=== PATIENT | male | born 1970 | race African-American/Black ===

== ENCOUNTER 2017-02-05 10:39 | Inpatient (IN) | payer OTHER ==
[~2017-02-05] VITALS: Ht 175.3 cm; Wt 86.3 kg
[2017-02-05 12:05] LABS: HEMATOCRIT 41.3 % (38.0-50.0); MCH 29.9 PG (29.0-34.0); MCHC 32.2 G/DL (30.0-36.0); MCV 92.8 FL (86-99); MEAN PLAT.VOLUME 12.5 uM^3 (9.0-12.4); PLATELET COUNT 130 K/uL (156-360); RBC DIS.WIDTH-CV 13.2 % (11.8-14.6); RBC DIS.WIDTH-SD 44.8 % (39-53); RED BLOOD COUNT 4.45 M/uL (4.00-5.50); WHITE BLOOD COUNT 4.2 K/uL (4.1-10.2)
[2017-02-05 12:20] LABS: CHLORIDE 102 mEq/L (99-109); POTASSIUM 4.3 mEq/L (3.7-5.4); SODIUM 143 mEq/L (136-147)
[2017-02-05 12:21] LABS: GLUCOSE 88 mg/dL (70-99)
[2017-02-05 12:23] LABS: ANION GAP 13 MEQ/L (2-14)
[2017-02-05 12:25] LABS: GFR ESTIMATE (CALCULATED) 37 mL/min/
[2017-02-05 12:26] LABS: UREA NITROGEN (BUN) 50 mg/dL (9-23)
[2017-02-05 12:27] LABS: TROP-I INTERPRETATION NEGATIVE; TROPONIN-I 0.01 ng/mL (0.0-0.30)
[2017-02-05] MEDS ORDERED: HUMALOG100 UNIT/2 SC (13:23)
[2017-02-05] MEDS ORDERED: LANTUS 3 M100 UNITS1 SC (13:25)
[2017-02-05] MEDS ORDERED: LO-DOSE ASPIRIN81 M2 PO (13:28)
[2017-02-05] MEDS ORDERED: BENADRYL50 MG PO (13:29)
[2017-02-05] MEDS ORDERED: LASIX20 MG PO (13:30)
[2017-02-05] MEDS ORDERED: HALOPERIDO50 MG/1 ML IM (13:31)
[2017-02-05] MEDS ORDERED: LISINOPRIL10 MG PO (13:32)
[2017-02-05] MEDS ORDERED: LIPITOR10 MG PO (13:33)
[2017-02-05] MEDS ORDERED: HALDOL5 MG PO (13:33)
[2017-02-05] MEDS ORDERED: LORAZEPAM1 MG PO (13:34)
[2017-02-05] MEDS ORDERED: DEPAKOTE250 MG PO (13:40)
[2017-02-05] MEDS ORDERED: METFORMIN HCL500 MG PO (13:41)
[2017-02-05] MEDS ORDERED: SELENIUM SULFI118 ML TP (13:43)
[2017-02-05] MEDS ORDERED: GLUCAGON1 MG IM (13:44)
[2017-02-05] MEDS ORDERED: UREA85 GM TP (13:44)
[2017-02-05] MEDS ORDERED: GLUCOSE4 GM PO (13:45)
[2017-02-05] MEDS ORDERED: TYLENOL ARTHRI650 MG PO (13:46)
[2017-02-05 15:23] LABS: POINT-OF-CARE METER ID UU14100415
[2017-02-05 20:03] LABS: TROP-I INTERPRETATION NEGATIVE; TROPONIN-I 0.01 ng/mL (0.0-0.30)
[2017-02-06 04:47] LABS: CHLORIDE 106 mEq/L (99-109); POTASSIUM 4.6 mEq/L (3.7-5.4); SODIUM 144 mEq/L (136-147)
[2017-02-06 04:50] LABS: ANION GAP 9 MEQ/L (2-14)
[2017-02-06 04:53] LABS: UREA NITROGEN (BUN) 38 mg/dL (9-23)
[2017-02-06 04:56] LABS: GFR ESTIMATE (CALCULATED) 52 mL/min/; GLUCOSE 120 mg/dL (70-99); TROP-I INTERPRETATION NEGATIVE; TROPONIN-I < 0.01 ng/mL (0.0-0.30)
[2017-02-06 07:31] LABS: POINT-OF-CARE METER ID UU14100415
[2017-02-06 11:37] LABS: POINT-OF-CARE METER ID UU13113702
[2017-02-06 16:03] LABS: POINT-OF-CARE METER ID UU14100415
[2017-02-06 17:58] VITALS: BP 181/113
[2017-02-06 18:30] VITALS: BP 172/104
[2017-02-06 19:45] VITALS: BP 111/72
[2017-02-06 21:21] LABS: POINT-OF-CARE METER ID UU13113725
[2017-02-06 22:55] VITALS: BP 135/85
[2017-02-07 05:51] LABS: POINT-OF-CARE METER ID UU13113725
[2017-02-07 06:44] LABS: ANION GAP 8 MEQ/L (2-14); CHLORIDE 105 MEQ/L (99-109); GLUCOSE 104 mg/dL (70-99); POTASSIUM 4.6 MEQ/L (3.7-5.4); SAMPLE HEMOLYSIS CHECK 0; SAMPLE ICTERIC CHECK 0; SAMPLE LIPEMIA CHECK 0; SODIUM 141 MEQ/L (136-147); UREA NITROGEN (BUN) 21 mg/dL (9-23)
[2017-02-07 06:52] LABS: GFR ESTIMATE (CALCULATED) > 59 mL/min/
[2017-02-07 09:17] VITALS: BP 111/59
[2017-02-07 11:56] LABS: POINT-OF-CARE METER ID UU13113725
[2017-02-07 17:00] LABS: POINT-OF-CARE METER ID UU13113725
[2017-02-07 17:54] VITALS: BP 148/84
[2017-02-07 22:49] VITALS: BP 138/76
[2017-02-08 08:50] VITALS: BP 143/96
[2017-02-08 11:30] VITALS: BP 153/99
[2017-02-08] MEDS ORDERED: LOPRESSOR50 MG PO (11:31)
== END 2017-02-08 15:22 | DRG 313 ==
LOC: EME 10:39 → 5EAST 14:37 → EDOF 14:37 → 5EAST 02-06 17:30
PROVIDERS: Emergency Medicine; Internal Medicine
DX: R07.89 Other chest pain (principal); N17.9 Acute kidney failure, unspecified; E11.40 Type 2 diabetes mellitus with diabetic neuropathy, unspecified; D69.6 Thrombocytopenia, unspecified; F20.9 Schizophrenia, unspecified; I11.9 Hypertensive heart disease without heart failure; E86.0 Dehydration; F79 Unspecified intellectual disabilities; F39 Unspecified mood [affective] disorder; E78.5 Hyperlipidemia, unspecified; E66.9 Obesity, unspecified; Z59.0 Homelessness; R53.1 Weakness; F19.10 Other psychoactive substance abuse, uncomplicated; K42.9 Umbilical hernia without obstruction or gangrene
CPT/HCPCS: 71020; 74176; 80048; 82948; 83880; 84484; 85027; 93005; 93306; 94799; 99281; 99285; J0360; J1650; J1815; J2405; J7030

== ENCOUNTER → 2017-05-08 | Outpatient (CLI) | payer OTHER ==
[~2017-05-08] MED LIST: AMMONIUM LACTA224 GM TP; ASPIRIN325 MG PO; BENADRYL50 MG PO; DEPAKOTE250 MG PO; GLUCAGON1 MG IM; GLUCOSE4 GM PO; HALDOL5 MG PO; HALOPERIDO50 MG/1 ML IM; HUMALOG100 UNIT/2 SC; LANTUS 3 M100 UNITS1 SC; LASIX20 MG PO; LIPITOR10 MG PO; LISINOPRIL10 MG PO; LO-DOSE ASPIRIN81 M2 PO; LOPRESSOR50 MG PO; LORAZEPAM1 MG PO; METFORMIN HCL500 MG PO; NORVASC5 MG PO; SELENIUM SULFI118 ML TP; TYLENOL ARTHRI650 MG PO; UREA85 GM TP; [UNRECOGNIZED DRUG - OTHER]
== END ==
LOC: NUC 03-31 08:30
DX: R94.39 Abnormal result of other cardiovascular function study (principal)
CPT/HCPCS: 78452; 93017; A9500; J2785

== ENCOUNTER 2017-06-05 09:47 | Day surgery (SDC) | payer OTHER ==
[~2017-06-05] VITALS: Ht 170.2 cm; Wt 81.7 kg
[~2017-06-05 09:47] MED LIST changes: -ASPIRIN325 MG PO
[2017-06-05] MEDS ORDERED: ASPIRIN325 MG PO (10:10)
[2017-06-05 10:26] LABS: POINT-OF-CARE METER ID UU13113696
[2017-06-05 12:56] LABS: POINT-OF-CARE METER ID UU13113819
== END 2017-06-05 16:30 ==
LOC: CATH 09:47
PROVIDERS: Internal Medicine Cardiovascular Disease
DX: I42.2 Other hypertrophic cardiomyopathy (principal); I77.1 Stricture of artery; I13.0 Hypertensive heart and chronic kidney disease with heart failure and stage 1 through stage 4 chronic kidney disease, or unspecified chronic kidney disease; E11.22 Type 2 diabetes mellitus with diabetic chronic kidney disease; E11.65 Type 2 diabetes mellitus with hyperglycemia; N18.3 Chronic kidney disease, stage 3 (moderate); I50.9 Heart failure, unspecified; F79 Unspecified intellectual disabilities; F20.9 Schizophrenia, unspecified; Z79.4 Long term (current) use of insulin; Z79.82 Long term (current) use of aspirin; Z79.84 Long term (current) use of oral hypoglycemic drugs; Z79.899 Other long term (current) drug therapy; I95.2 Hypotension due to drugs
CPT/HCPCS: 82948; C1769; C1887; J1644; J2250; J3010